=== PATIENT | female | born 1965 | race Asian ===

== ENCOUNTER → 2017-09-27 | Outpatient (CLI) | payer OTHER ==
[~2017-09-27] MED LIST: IBUP-103 PO
--- NOTE | 2017-09-27 09:15 | DIAGNOSTIC IMAGING REPORT ---
PELVIC ULTRASOUND, TRANSABDOMINAL AND TRANSVAGINAL HISTORY: SPOTTING COMPARISON: Pelvic ultrasound 10/06/2013. FINDINGS: Uterus: 7.1 x 4.2 x 5.5 cm. Multiple hypoechoic lesions with the largest measuring 3.7 cm. These likely represent fibroids. These are similar to the prior study. The uterus is retroflexed. Stable cystic focus along the left side the uterus measuring 1.6 x 1.4 cm. This is similar to the prior study Endometrial stripe: The endometrial stripe is difficult to identify due to the multiple shadowing utilized fibroids. However, the endometrial stripe does not appear to be grossly thickened. Right ovary: Normal in size and demonstrates normal color flow. Left ovary: Obscured by overlying bowel gas. Miscellaneous:No pelvic free fluid. IMPRESSION: Overall, no significant change compared to the 2013 study. Multiple uterine fibroids are again noted. Normal right ovary. The left ovary was not visualized. Electronically signed by: Juan Xiao M.D. 09/27/2017 9:13 AM Dictated Date/Time: 09/27/2017 9:08 AM
== END | disposition home or self-care (01) ==
LOC: C.ULTR 08:00
PROVIDERS: ATTEND Family Medicine
DX: D25.9 Leiomyoma of uterus, unspecified (principal)